=== PATIENT | male | born 1955 | race Caucasian/White ===

== ENCOUNTER → 2020-05-09 | Day surgery (SDC) | payer OTHER ==
[2020-05-03 15:13] VITALS: BMI 27.9
[~2020-05-09] MED LIST: ACETYLCHOLINE 1:100 INTRA-OCUL 20 MG/2 ML KIT ONE; BSS (NA/CA/MG/K) BALANCED SALT SOLUTION OPHTH SOLN 15 ML BOTTLE ONE; CARBACHOL 0.01% INTRA-OCULAR 1.5 ML VIAL ONE; CIPROFLOXACIN 0.3% EYE DROPS 5 ML BOTTLE ONE; CIPROFLOXACIN HCL 0.3% OPHTH 2.5ML BOTTLE OS ONE; CIPROFLOXACIN HCL 0.3% OPHTH 2.5ML BOTTLE OS SCH; CYCLOPENTOLATE 2% OPHTH SOLN 2 ML BOTTLE ONE; CYCLOPENTOLATE 2% OPHTH SOLN 2 ML BOTTLE OS ONE; CYCLOPENTOLATE 2% OPHTH SOLN 2 ML BOTTLE OS SCH; MIDAZOLAM HCL 2 MG/2 ML SINGLE DOSE VIAL ONE; NEO/POLYMYX B SULF/DEXAMETH OPHTHALMIC 5ML BOTTLE ONE; ONDANSETRON 4 MG/2 ML VIAL ONE; PHENYLEPHRINE 2.5% OPHTH SOLN 15 ML BOTTLE ONE; PHENYLEPHRINE 2.5% OPHTH SOLN 15 ML BOTTLE OS ONE; PHENYLEPHRINE 2.5% OPHTH SOLN 15 ML BOTTLE OS SCH; TROPICAMIDE 1% OPHTH SOLN 15 ML BOTTLE ONE; TROPICAMIDE 1% OPHTH SOLN 15 ML BOTTLE OS ONE; TROPICAMIDE 1% OPHTH SOLN 15 ML BOTTLE OS SCH
[2020-05-09 13:04] VITALS: BP 154/89; PULSE 84; TEMP 98.4
--- NOTE | 2020-05-14 12:01 | OP ---
DATE OF OPERATION: 05/09/2020 OPERATIVE PROCEDURE: Lens phacoemulsification with posterior chamber intraocular lens placement left eye. PREOPERATIVE DIAGNOSIS: Visually significant cataract of left eye. POSTOPERATIVE DIAGNOSIS: Visually significant cataract of left eye. SURGEON: Jimbo Knight M.D. ANESTHESIA: MAC PROCEDURE: The patient was brought to the operating room and placed under monitored anesthesia care by Anesthesia. A drop of tetracaine was then placed over the left eye. The patient was then prepped and draped in the usual sterile manner. A speculum was then placed over the left eye. The eye was then well irrigated with copious amounts of BSS (balanced salt solution). The operating microscope was then moved into position. A paracentesis was performed using a 15-degree blade. At this point 0.5 mL of 1% preservative-free lidocaine was injected into the anterior chamber. Amvisc Plus was then injected into the anterior chamber. A clear corneal incision was then formed using a 2.2-mm keratome. A capsulorrhexis was then performed in a continuous circular fashion beginning with a cystotome, completed with a Utrata forceps. Hydrodissection was then performed using BSS on a cannula. The phaco probe was then introduced through the corneal wound and the cataract was removed using the phaco chop technique. Approximately 3 seconds of absolute phaco time was used. The remaining cortex was then removed using irrigation and aspiration with an I/A probe. The capsule was then filled with regular Amvisc and the capsule was noted to be intact. A previously selected foldable posterior chamber intraocular lens was then injected into the capsule through the corneal wound using a lens injector. It was then dialed into position using a Sinskey hook. The Amvisc was then removed using irrigation and aspiration. Miostat was then injected through the paracentesis to constrict the pupil. The paracentesis and corneal wound were then hydrated and noted to be water tight. A drop of Maxitrol was then placed over the eye. The speculum was removed and clear shield was taped over the eye. The patient tolerated the procedure well and there were no surgical complications. The patient was asked to follow up in my office the next day. JIMBO KNIGHT M.D. [id number]
== END | disposition home or self-care (01) ==
LOC: FASU 09:03
PROVIDERS: ATTEND Ophthalmology
PROC: 08RK3JZ Replacement of Left Lens with Synthetic Substitute, Percutaneous Approach (ICD-10-PCS; principal; 2020-05-09 11:50)
DX: H26.8 Other specified cataract (principal)

== ENCOUNTER 2020-05-23 07:25 | Day surgery (SDC) | payer OTHER ==
[2020-05-21 10:49] VITALS: BMI 27.9
--- OUTSIDE RECORDS SUMMARY | 2020-05-23 07:30 | XMS ---
:1955 Author Organization [facility] Support Name Relationship Address Phone [facility] Unavailable [address] [place] [address] [phone] [place] [address] [address] [facility] [phone] [place] [address] Re-disclosure Warning The records that you are about to access may contain information from federally- assisted alcohol or drug abuse programs. If such information is present, then the following federally mandated warning applies: This information has been disclosed to you from records protected by federal confidentiality rules (42 CFR part 2). The federal rules prohibit you from making any further disclosure of this information unless further disclosure is expressly permitted by the written consent of the person to whom it pertains or as otherwise permitted by 42 CFR part 2. A general authorization for the release of medical or other information is NOT sufficient for this purpose. The Federal rules restrict any use of the information to criminally investigate or prosecute any alcohol or drug abuse patient.The records that you are about to access may contain highly sensitive health information, the redisclosure of which is protected by Article 27-F of the [facility] Public Health law. If you continue you may haveaccess to information: Regarding HIV / AIDS; Provided by facilities licensed or operated by the [facility] Office of Mental Health; or Provided by the [facility] Office for People With Developmental Disabilities. If such information is present, then the following [facility] mandated warning applies: This information has been disclosed to you from confidential records which are protected by state law. State law prohibits you from making any further disclosure of this information without the specific written consent of the person to whom it pertains, or as otherwise permitted by law. Any unauthorized further disclosure in violation of state law may result in a fine or nursing home sentence or both. A general authorization for the release of medical or other information is NOT sufficient authorization for further disclosure. Insurance Providers Payer name Policy type Policy ID Covered Covered green party's Policy P cata / Coverage green party ID relationship to Mas Inf ormation type mas [place] [id number] 1 [employer]ALTH PLANS Results ID Date Data Source [id number] 05/06/2020 10:04:00 AM EDT [facility] Name Value Range Interpretation Description Data Sup porting Code Source(s) Document(s ) SARS [facility] coronavirus 2 RNA This lab was ordered by CAYLA barnard [facility] and reported by [facility]. Procedure
[2020-05-23] MEDS: CIPROFLOXACIN 0.3% EYE DROPS 5 ML BOTTLE ONE ×3 (08:15→08:25)
[2020-05-23] MEDS: PHENYLEPHRINE 2.5% OPHTH SOLN 15 ML BOTTLE ONE ×3 (08:15→08:25)
[2020-05-23] MEDS: TROPICAMIDE 1% OPHTH SOLN 15 ML BOTTLE ONE ×3 (08:15→08:25)
[2020-05-23] MEDS: CYCLOPENTOLATE 2% OPHTH SOLN 2 ML BOTTLE ONE ×3 (08:15→08:25)
[2020-05-23] MEDS ORDERED: MIDAZOLAM HCL 2 MG/2 ML SINGLE DOSE VIAL ONE ×2 (09:25→09:33)
[2020-05-23] MEDS ORDERED: TETRACAINE 0.5% OPHTH SOLN 2 ML BOTTLE ONE (11:35)
[2020-05-23] MEDS ORDERED: CARBACHOL 0.01% INTRA-OCULAR 1.5 ML VIAL ONE (11:35)
[2020-05-23] MEDS ORDERED: LIDOCAINE 1% P/F 10 MG/ML VIAL ONE (11:35)
[2020-05-23] MEDS ORDERED: BSS (NA/CA/MG/K) BALANCED SALT SOLUTION OPHTH SOLN 15 ML BOTTLE ONE (11:35)
[2020-05-23] MEDS ORDERED: NEO/POLYMYX B SULF/DEXAMETH OPHTHALMIC 5ML BOTTLE ONE (11:35)
[2020-05-23 13:32] VITALS: TEMP 98.4
[2020-05-23 13:34] VITALS: BP 150/92; PULSE 64
--- NOTE | 2020-05-23 15:37 | OP ---
DATE OF OPERATION: 05/23/2020 OPERATIVE PROCEDURE: Lens phacoemulsification with posterior chamber intraocular lens placement, right eye. PREOPERATIVE DIAGNOSIS: Visually significant cataract of right eye. POSTOPERATIVE DIAGNOSIS: Visually significant cataract of right eye. SURGEON: Jimbo Knight M.D. ANESTHESIA: MAC. PROCEDURE: The patient was brought to the operating room and placed under monitored anesthesia care by Anesthesia. A drop of tetracaine was then placed over the right eye. The patient was then prepped and draped in the usual sterile manner. A speculum was then placed over the right eye. The eye was then well irrigated with copious amounts of BSS (balanced salt solution). The operating microscope was then moved into position. A paracentesis was performed using a 15-degree blade. At this point 0.5 mL of 1% preservative free-lidocaine was injected into the anterior chamber. Amvisc Plus was then injected into the anterior chamber. A clear corneal incision was then formed using a 2.2-mm keratome. A capsulorrhexis was then performed in a continuous circular fashion beginning with a cystotome completed with a Utrata forceps. Hydrodissection was then performed using BSS on a cannula. The phaco probe was then introduced through the corneal wound and the cataract was removed using the phaco chop technique. Approximately 3 seconds of absolute phaco time was used. The remaining cortex was then removed using irrigation and aspiration with an I/A probe. The capsule was then filled with regular Amvisc and the capsule was noted to be intact. A previously selected foldable posterior chamber intraocular lens was then injected into the capsule through the corneal wound using a lens injector. It was then dialed into position using a Sinskey hook. The Amvisc was then removed using irrigation and aspiration. Miostat was then injected through the paracentesis to constrict the pupil. The paracentesis and corneal wound were then hydrated and noted to be watertight. A drop of Maxitrol was then placed over the eye. The speculum was removed and clear shield was taped over the eye. The patient tolerated the procedure well and there were no surgical complications. The patient was asked to follow up in my office the next day. JIMBO KNIGHT M.D. [id number]
== END 2020-05-23 10:40 | disposition home or self-care (01) ==
LOC: FASU 07:25
PROVIDERS: ATTEND Ophthalmology
PROC: 08RJ3JZ Replacement of Right Lens with Synthetic Substitute, Percutaneous Approach (ICD-10-PCS; principal; 2020-05-23 09:39)
DX: H26.8 Other specified cataract (principal)

== ENCOUNTER 2025-03-24 10:03 | Emergency (ER) | payer OTHER ==
[2025-03-24] MEDS ORDERED: FAMOTIDINE 20 MG/50 ML IVPB 20 MG/50 ML MG IVPB ONE (10:12)
[2025-03-24] MEDS ORDERED: methylPREDNISolone NA SUCC 125 MG/2 ML VIAL ONE (10:12)
[2025-03-24] MEDS: FAMOTIDINE 20 MG/50 ML IVPB 20 MG/50 ML MG IVPB ONE (10:13)
[2025-03-24] MEDS: methylPREDNISolone NA SUCC 40 MG/1 ML VIAL IVPUSH ONE (10:14)
[2025-03-24 10:28] VITALS: TEMP 98.7; BMI 27.2
[2025-03-24 11:16] VITALS: BP 112/72; PULSE 89; RESP 16
[2025-03-24 17:44] LABS: HCV DIAGNOSTIC IN-HOUSE W/RFLX NON-REACTIVE (NONREACTIVE)
[2025-03-24 17:47] LABS: HIV INTERPRETATION NEGATIVE (NEGATIVE)
== END 2025-03-24 11:22 | disposition home or self-care (01) ==
LOC: FER 10:03
PROC: 3E033GC Introduction of Other Therapeutic Substance into Peripheral Vein, Percutaneous Approach (ICD-10-PCS; principal; 2025-03-24)
PROC: 3E033GC Introduction of Other Therapeutic Substance into Peripheral Vein, Percutaneous Approach (ICD-10-PCS; 2025-03-24)
PROC: 3E033GC Introduction of Other Therapeutic Substance into Peripheral Vein, Percutaneous Approach (ICD-10-PCS; 2025-03-24)
DX: L50.0 Allergic urticaria (principal); L29.9 Pruritus, unspecified; R21 Rash and other nonspecific skin eruption; R06.02 Shortness of breath; T37.0X5A Adverse effect of sulfonamides, initial encounter
CPT/HCPCS: 36415; 86803; 87389; 99284-25